=== PATIENT | female | born 1995 | race Caucasian/White ===

== ENCOUNTER 2017-03-28 22:02 | Emergency (ER) | payer OTHER ==
[2017-03-28 22:17] VITALS: TEMP 98.2
--- NOTE | 2017-03-28 22:31 | CPEKG ---
Heart Rate: 78 RR Interval: 769 P-R Interval: 124 QRSD Interval: 80 QT Interval: 372 QTC Interval: 424 P [place]: 11 QRS [place]: -8 T Wave [place]: 7 EKG Severity - NORMAL ECG - EKG Impression: SINUS RHYTHM Electronically Signed By: Raul Kramer 28-Mar-2017 23:02:56
--- NOTE | 2017-03-28 23:05 | EDPHY ---
H & P Stated Complaint: feeling sob at rest and tightness in chest for 1 week worse tonight Time Seen by Provider: 03/28/17 22:51 HPI/ROS: CHIEF COMPLAINT: Chest pressure and dyspnea x1 week HISTORY OF PRESENT ILLNESS: 21-year-old female generally healthy complaining of 1 week of left-sided chest discomfort and dyspnea. Not described as pleuritic, described as I just can not catch my breath. She is physically active and notes that she never experiences exertional chest pain or exertional dyspnea beyond was expected for physical activity. She has not had to cease physical activity prematurely. No syncope or near syncope. No back pain. No immobility. No trauma PRIMARY CARE PROVIDER: REVIEW OF SYSTEMS: A ten point review of systems was performed and is negative with the exception of the items mentioned in the HPI PAST MEDICAL & SURGICAL HISTORY: daily oral contraceptives SOCIAL HISTORY:nonsmoker. No drug use. FAMILY HISTORY: No family history of premature coronary artery disease or thromboembolic disorder PHYSICAL EXAM (Prior to examination, patient consented to physical exam, hands were washed and my usual and customary physical exam procedures followed) 1) GENERAL: Well-developed, well-nourished, alert and oriented. Appears to be in no acute distress. 2) HEAD: Normocephalic, atraumatic 3) HEENT: Pupils equal, round, reactive to light bilaterally. Sclera anicteric. 4) NECK: Full range of motion, no bruit . 5) LUNGS: Clear auscultation bilaterally, no wheezes, no rhonchi, no retractions. 6) HEART: Regular rate and rhythm, no murmur, no heave, no gallop. 7) ABDOMEN: No guarding, no rebound, no focal tenderness, negative McBurney's, negative Latif's, negative Rovsing's, negative peritoneal sign, 8) MUSCULOSKELETAL: negative Homans no palpable cord. Moving all extremities, no focal areas of tenderness, no obvious trauma. No peripheral edema or discoloration. 9) BACK: No CVA tenderness, no midline vertebral tenderness, no fluctuance, no step-off, no obvious trauma, no visual or palpable abnormality. 10) SKIN: No rash, no petechiae. 11) Psychiatric: Patient is oriented X 3, there is no agitation. DIFFERENTIAL DIAGNOSIS: in no particular include but limited to pulmonary embolus, GA, pleurisy - Personal History LMP (Females 10-55): Now Current Tetanus/Diphtheria Vaccine: Yes Current Tetanus Diphtheria and Acellular Pertussis (TDAP): Yes - Medical/Surgical History Hx Asthma: No Hx Chronic Respiratory Disease: No Hx Diabetes: No Hx Cardiac Disease: No Hx Renal Disease: No Hx Cirrhosis: No Hx Alcoholism: No Hx HIV/AIDS: No Hx Splenectomy or Spleen Trauma: No Other PMH: hernia at - Social History Smoking Status: Never smoked Constitutional: Initial Vital Signs Temperature (C) 36.8 C 03/28/17 22:12 Heart Rate 77 03/28/17 22:12 Respiratory Rate 18 03/28/17 22:12 Blood Pressure 130/79 H 03/28/17 22:12 O2 Sat (%) 96 03/28/17 22:12 O2 Delivery Mode Room Air Allergies/Adverse Reactions: No Known Allergies Allergy (Unverified 07/22/11 17:34) Home Medications: Medication Instructions Recorded Bcp 07/22/11 Medical Decision Making - Diagnostics Imaging Results: Imaging Impressions Chest X-Ray 03/28/17 23:06 Impression: Normal chest. Images reviewed by myself ED Course/Re-evaluation: 11:04 p.m.: Discussed case Dr. Raul Kramer in the ER. Will obtain imaging studies. 12:20 a.m.: Patient was re-evaluated with serial examinations. I reviewed her diagnostic studies at this time including normal chest x-ray, normal D-dimer, normal troponin. I think that a negative D-dimer in this patient adequately excludes pulmonary embolus . I do not think that further diagnostic studies are indicated. The specific etiology of her subjective symptoms is not completely clear. I do not think that further interventions or diagnostic studies are indicated at this time noted I think that hospitalization is indicated. She is not tachycardic, not tachypneic, maintain normal saturations. I have given her primary care follow-up. She feels comfortable being discharged. - Data Points Laboratory Results: Laboratory Results 03/28/17 23:07 03/28/17 23:07 03/28/17 03/28/17 03/28/17 23:07 23:07 23:07 WBC 6.03 10^3/uL 10^3/uL (3.80-9.50) RBC 4.33 10^6/uL 10^6/uL (4.18-5.33) Hgb 13.6 g/dL g/dL (12.6-16.3) Hct 39.2 % % (38.0-47.0) MCV 90.5 fL fL (81.5-99.8) MCH 31.4 pg pg (27.9-34.1) MCHC 34.7 g/dL g/dL (32.4-36.7) RDW 12.3 % % (11.5-15.2) Plt Count 171 10^3/uL 10^3/uL (150-400) MPV 13.5 fL H fL (8.7-11.7) Neut % (Auto) 45.0 % % (39.3-74.2) Lymph % (Auto) 43.8 % % (15.0-45.0) Mower % (Auto) 8.5 % % (4.5-13.0) Eos % (Auto) 2.0 % % (0.6-7.6) Baso % (Auto) 0.5 % % (0.3-1.7) Nucleat RBC Rel Count 0.0 % % (0.0-0.2) Absolute Neuts (auto) 2.72 10^3/uL 10^3/uL (1.70-6.50) Absolute Lymphs (auto) 2.64 10^3/uL 10^3/uL (1.00-3.00) Absolute Monos (auto) 0.51 10^3/uL 10^3/uL (0.30-0.80) Absolute Eos (auto) 0.12 10^3/uL 10^3/uL (0.03-0.40) Absolute Basos (auto) 0.03 10^3/uL 10^3/uL (0.02-0.10) Absolute Nucleated RBC 0.00 10^3/uL 10^3/uL (0-0.01) Immature Gran % 0.2 % % (0.0-1.1) Immature Gran # 0.01 10^3/uL 10^3/uL (0.00-0.10) D-Dimer Sodium 144 mEq/L mEq/L (134-144) Potassium 3.9 mEq/L mEq/L (3.5-5.2) Chloride 109 mEq/L mEq/L (97-110) Carbon Dioxide 23 mEq/l mEq/l (22-31) Anion Gap 12 mEq/L mEq/L (8-16) BUN 13 mg/dL mg/dL (7-23) Creatinine 0.8 mg/dL mg/dL (0.6-1.0) Estimated GFR > 60 Glucose 82 mg/dL mg/dL (70-100) Calcium 9.6 mg/dL mg/dL (8.5-10.4) Troponin I < 0.012 ng/mL ng/mL (0-0.034) Beta HCG, Qual NEGATIVE 03/28/17 23:06 WBC RBC Hgb Hct MCV MCH MCHC RDW Plt Count MPV Neut % (Auto) Lymph % (Auto) Mower % (Auto) Eos % (Auto) Baso % (Auto) Nucleat RBC Rel Count Absolute Neuts (auto) Absolute Lymphs (auto) Absolute Monos (auto) Absolute Eos (auto) Absolute Basos (auto) Absolute Nucleated RBC Immature Gran % Immature Gran # D-Dimer < 0.27 ug/mLFEU ug/mLFEU (0.00-0.50) Sodium Potassium Chloride Carbon Dioxide Anion Gap BUN Creatinine Estimated GFR Glucose Calcium Troponin I Beta HCG, Qual Departure - Departure Disposition: Home, Routine, Self-Care Clinical Impression: Chest pain Qualifiers: Chest pain type: unspecified Qualified Code(s): R07.9 - Chest pain, unspecified Dyspnea Qualifiers: Dyspnea type: unspecified Qualified Code(s): R06.00 - Dyspnea, unspecified Condition: Good Instructions: Dyspnea (ED) Additional Instructions: Return to the emerged from immediately if you develop new or worsening symptoms. Follow up with your Sarah provider on Friday Referrals: MARCOS DAUGHERTY [Other] - 03/31/17
[2017-03-28 23:56] LABS: % IMMATURE GRANULYOCYTES 0.2 % (0.0-1.1); ABSOLUTE IMMATURE GRANULOCYTES 0.01 10^3/uL (0.00-0.10); ADD DIFF? NO; ADD MORPH? NO; ADD SCAN? NO; ATYPICAL LYMPHOCYTE FLAG 20 (0-99); FRAGMENT RBC FLAG 0 (0-99); HEMATOCRIT 39.2 % (38.0-47.0); HEMOGLOBIN 13.6 g/dL (12.6-16.3); LEFT SHIFT FLG 0 (0-99); LIPEMIA HEMOLYSIS FLAG 90 (0-99); MEAN CELL HEMOGLOBIN 31.4 pg (27.9-34.1); MEAN CELL HEMOGLOBIN CONCENTR. 34.7 g/dL (32.4-36.7); MEAN CELL VOLUME 90.5 fL (81.5-99.8); MEAN PLATELET VOLUME 13.5 fL (8.7-11.7); PLATELET CLUMPS FLAG 0 (0-99); PLATELET COUNT 171 10^3/uL (150-400); RED BLOOD CELL COUNT 4.33 10^6/uL (4.18-5.33); RED CELL DISTRIBUTION WIDTH 12.3 % (11.5-15.2)
[2017-03-29 00:01] LABS: ANION GAP 12 mEq/L (8-16); CALCIUM 9.6 mg/dL (8.5-10.4); CARBON DIOXIDE 23 mEq/l (22-31); CHLORIDE 109 mEq/L (97-110); CREATININE 0.8 mg/dL (0.6-1.0); GLOMERULAR FILTRATION RATE > 60; GLUCOSE 82 mg/dL (70-100); POTASSIUM 3.9 mEq/L (3.5-5.2); SODIUM 144 mEq/L (134-144)
[2017-03-29 00:06] VITALS: BP 108/65; PULSE 74; RESP 16; O2SAT 97
[2017-03-29 00:13] LABS: TROPONIN I < 0.012 ng/mL (0-0.034)
== END 2017-03-29 00:45 | disposition home or self-care (01) ==
DX: R07.9 Chest pain, unspecified (principal); R06.00 Dyspnea, unspecified

== ENCOUNTER → 2017-06-18 | Outpatient (CLI) | payer OTHER | LOC: FIMAGING 10:23 | PROVIDERS: ATTEND Family Medicine | DX: Z03.89 Encounter for observation for other suspected diseases and conditions ruled out (principal) ==